=== PATIENT | female | born 1980 | race Caucasian/White ===

== ENCOUNTER 2017-05-29 13:32 | Emergency (ER) | payer SELFPAY | END 2017-05-29 16:35 | disposition home or self-care (01) | LOC: ERS 13:32 | DX: Z76.0 Encounter for issue of repeat prescription (principal); F41.9 Anxiety disorder, unspecified; F32.9 Major depressive disorder, single episode, unspecified; F43.10 Post-traumatic stress disorder, unspecified | CPT/HCPCS: 99281 ==

== ENCOUNTER 2017-06-27 12:26 | Emergency (ER) | payer SELFPAY ==
[2017-06-27] MEDS ORDERED: Ketorolac Tromethamine 60 MG/2 ML VIAL ONE (13:21)
--- NOTE | 2017-06-27 14:41 | RAD ---
LEFT FOOT THREE VIEWS: History: Pain. FINDINGS: Tarsals, metatarsals, and phalanges appear unremarkable. MTP and IP joints unremarkable. IMPRESSION: Unremarkable left foot. POS: HECTOR
== END 2017-06-27 14:00 | disposition home or self-care (01) ==
LOC: ERS 12:26
DX: M67.472 Ganglion, left ankle and foot (principal); F41.9 Anxiety disorder, unspecified; F32.9 Major depressive disorder, single episode, unspecified; F43.10 Post-traumatic stress disorder, unspecified
CPT/HCPCS: 96372; J1885